=== PATIENT | female | born 1940 | race Caucasian/White ===

== ENCOUNTER 2022-09-11 19:46 | Inpatient (IN) | payer BC, MEDICARE ==
[~2022-09-11] VITALS: Ht 157.5 cm; Wt 65.9 kg
[2022-09-11] MEDS ORDERED: iohexol 350MG/ML 100ml bottle IV ONE (19:59)
[2022-09-11 20:49] LABS: BASOPHILS # (AUTO) 0.1 X10'3 (0-0.2); BASOPHILS % (AUTO) 0.6 % (0-1); EOSINOPHILS % (AUTO) 0.4 % (0-6); HEMATOCRIT 32.6 % (35.0-45.0); HEMOGLOBIN 11.3 g/dl (12.0-16.0); LYMPHOCYTES # (AUTO) 1.1 X10'3 (1.1-4.8); MEAN CORPUSCULAR HGB CONC 34.6 g/dL (33.0-36.5); MEAN PLATELET VOLUME 7.1 FL (7.4-10.4); MONOCYTES # (AUTO) 0.5 X10'3 (0-0.9); MONOCYTES % (AUTO) 5.1 % (2-12); NEUTROPHILS # (AUTO) 7.7 X10'3 (1.8-7.7); NEUTROPHILS % (AUTO) 81.9 % (42-75); PLATELET COUNT 157 X10'3 (140-440); RED BLOOD COUNT 3.13 X10'6 (4.20-5.60); RED CELL DISTRIBUTION WIDTH 12.8 % (11.5-14.5); WHITE BLOOD COUNT 9.4 X10'3 (4.5-11.0)
[2022-09-11 20:58] LABS: ALANINE AMINOTRANSFERASE 13 U/L (12-78); ALBUMIN 3.5 G/DL (3.4-5.0); ALKALINE PHOSPHATASE 83 IU/L (46-116); ANION GAP 9 (8-16); ASPARTATE AMINO TRANSFERASE 20 U/L (10-37); BILIRUBIN,TOTAL 0.5 MG/DL (0.1-1.0); BLOOD UREA NITROGEN 25 MG/DL (7-18); BUN/CREATININE RATIO 21.2 (10.0-20.0); CALCIUM 9.9 MG/DL (8.5-10.1); CHLORIDE 106 MMOL/L (99-107); CREATININE 1.18 MG/DL (0.40-0.90); GLUCOSE 120 MG/DL (70-104); POTASSIUM 4.4 MMOL/L (3.5-5.1); SODIUM 138 MMOL/L (135-145); TOTAL CARBON DIOXIDE 22.9 MMOL/L (24-32); TOTAL PROTEIN 7.1 G/DL (6.4-8.2); eGFR 44 ML/MIN
--- NOTE | 2022-09-11 21:29 | NUR ---
PT NPO DUE TO FAILED BEDSIDE SWALLOW EVAL. ORDER FOR SPEECH THERAPY EVALUATION PLACED. PT INCONTINENT. CLEAN BRIEF AND PUREWICK APPLIED AND PT EDUCATED
[2022-09-11 22:20] LABS: APTT 23 SECONDS (22-32)
[2022-09-11] MEDS ORDERED: magnesium Cl slow-release 64mg tablet PO PRN (22:30)
[2022-09-11] MEDS ORDERED: potassium Cl 40MEQ/1/2NS 520ml 520 ML IV PRN (22:30)
[2022-09-11] MEDS ORDERED: potassium Cl 20 mEq SR tablet PO PRN ×2 (22:30)
[2022-09-11] MEDS ORDERED: ondansetron/PF 4mg/2ml inj IV PRN (22:30)
[2022-09-11] MEDS ORDERED: magnesium 2GM in 50ml NS 50 ML IV PRN (22:30)
[2022-09-11] MEDS ORDERED: acetaminophen 325mg tablet PO PRN (22:30)
[2022-09-11] MEDS ORDERED: magnesium 4gm in 100ml NS 100 ML IV PRN (22:30)
[2022-09-11 23:44] VITALS: BP 93/50; PULSE 74; RESP 26; TEMP 98.8; O2SAT 97
[2022-09-12] VITALS (7 sets, daily range): BP systolic 93–107; BP diastolic 43–56; PULSE 59–71; RESP 14–18; TEMP 97.5–98.1; O2SAT 96–99
[2022-09-12 06:50] LABS: BASOPHILS % (AUTO) 0.4 % (0-1); EOSINOPHILS % (AUTO) 0.4 % (0-6); HEMATOCRIT 31.2 % (35.0-45.0); HEMOGLOBIN 10.5 g/dl (12.0-16.0); LYMPHOCYTES # (AUTO) 3.2 X10'3 (1.1-4.8); LYMPHOCYTES % (AUTO) 30.2 % (21-51); MEAN CORPUSCULAR HEMOGLOBIN 35.3 PG (27.0-31.0); MEAN CORPUSCULAR HGB CONC 33.6 g/dL (33.0-36.5); MONOCYTES # (AUTO) 0.8 X10'3 (0-0.9); MONOCYTES % (AUTO) 7.3 % (2-12); NEUTROPHILS # (AUTO) 6.6 X10'3 (1.8-7.7); NEUTROPHILS % (AUTO) 61.7 % (42-75); PLATELET COUNT 152 X10'3 (140-440); RED BLOOD COUNT 2.97 X10'6 (4.20-5.60); RED CELL DISTRIBUTION WIDTH 12.6 % (11.5-14.5); WHITE BLOOD COUNT 10.7 X10'3 (4.5-11.0)
[2022-09-12 06:56] LABS: ALBUMIN 3.1 G/DL (3.4-5.0); ANION GAP 7 (8-16); BLOOD UREA NITROGEN 24 MG/DL (7-18); BUN/CREATININE RATIO 19.8 (10.0-20.0); CALCIUM 9.4 MG/DL (8.5-10.1); CHLORIDE 107 MMOL/L (99-107); CREATININE 1.21 MG/DL (0.40-0.90); GLUCOSE 102 MG/DL (70-104); MAGNESIUM 1.9 MG/DL (1.5-2.4); POTASSIUM 4.1 MMOL/L (3.5-5.1); SODIUM 139 MMOL/L (135-145); TOTAL CARBON DIOXIDE 24.7 MMOL/L (24-32); eGFR 43 ML/MIN
[2022-09-12 07:42] LABS: CHOL/HDL RATIO 3.8 (0.00-4.99); CHOLESTEROL 187 MG/DL (0-200); HDL CHOLESTEROL 49 MG/DL (35-60); LDL CHOLESTEROL 125 MG/DL (50-100); TRIGLYCERIDES 51 MG/DL (20-135)
[2022-09-12] MEDS: K and/or MAG REPLACEMENT MC SCH ×2 (08:00→20:00)
[2022-09-12] MEDS ORDERED: atorvastatin 20mg tablet PO SCH (08:45)
--- NOTE | 2022-09-12 11:28 | NUR ---
spoke to doctor Jamal and stroke nurse patient can have small bites of jello and or apple sauce while we wait for speech therapy to see patient. Patient is able to swallow but has suspected cough r/t copd. Aspiration precautions in place.
[2022-09-12] MEDS ORDERED: clopidogrel 300mg tablet PO ONE (11:40)
[2022-09-12 11:44] LABS: HEMOGLOBIN A1C 5.1 % (4.5-6.2)
[2022-09-12] MEDS ORDERED: aspirin 325mg tablet PO ONE (11:45)
--- NOTE | 2022-09-12 13:14 | NUR ---
Malnutrition consult: Pt unsure of wt loss though with decreased appetite/PO intake per malnutrition risk screen with RN. Unable to obtain information from pt at this time as per EMR pt A/O x 1 and confused. Pt currently NPO pending BSS with ST. No scaled wt hx in EMR though current scaled wt is appropriate for age. Pt with no edema per physician notes. Unable to fully assess nutrition status at this time. Will continue to follow and monitor for s/s of malnutrition once more information is able to be obtained. Addendum: 09/12/22 at [address] Amended: Links added.
--- NOTE | 2022-09-12 14:00 | NUR ---
Physical therapy found patient in bed supine position with brief on. Wick was inside brief but had came disconnected from the suction tube the suction part attached to inner thigh and left a one inch circular open area to upper right thigh. Patient denies any pain. Wound care consult put in. cleansed with NS and pat dry with gauze.covered with a soft form 2x2 for skin integrity. Patient is incontinent. Wick in place. Staff educated on no briefs. Patient will remain on puree until new orders. HOB at 45 degrees at all times. All safety measures in place and call light in reach.
[2022-09-12] MEDS ORDERED: ipratropium/albuterol 3ml nebule NEB PRN (14:15)
[2022-09-12] MEDS: normal saline 500ml IV soln 500 ML IV SCH ×2 (14:25→21:33)
[2022-09-12] MEDS ORDERED: POTA-206 PO (15:22)
[2022-09-12] MEDS ORDERED: LEVO100T9 PO (15:22)
[2022-09-12] MEDS ORDERED: normal saline 1000ml 1,000 ML IV ONE (15:50)
--- NOTE | 2022-09-12 18:04 | NUR ---
patient pulled out IV. 400 of bolus had been given. Patient is very confused and would not comply with relaxing arm. Patient currently in bed. MD wants IV fluids after bolus will report to night nurse.
--- NOTE | 2022-09-12 18:30 | NUR ---
Patient in room PCU 3025. I have received report from Tamiko WIGGINS and had the opportunity to ask questions and assume patient care.
[2022-09-12] MEDS: nystatin 500,000 unit/5ML UD oral suspension PO SCH (21:16)
--- NOTE | 2022-09-12 22:54 | NUR ---
Page Sent PAGER ID: [phone] MESSAGE: [id number] Malka Jasso: pt is refusing to have IV. thank you Brit ext [phone]
[2022-09-13 02:00] VITALS: BP 95/48; PULSE 61; RESP 22; TEMP 97.7; O2SAT 94
--- NOTE | 2022-09-13 03:00 | NUR ---
PATIENT REFUSES TO PARTICIPATE IN CARE AND IS ONLY FOCUSED ON GOING HOME. PT STATES THAT "ONE WAY OR ANOTHER" SHE WILL GO HOME ON THURSDAY. PT REFUSES IV. MULTIPLE NURSES TRIED TO EXPLAIN THE IMPORTANCE OF HAVING AN IV AND ALSO STAYING UNTIL DISCHARGED. PT GETS VERY AGITATED EVERY TIME NURSES TRY TO CHECK ON HER OR SPEAK TO HER.
[2022-09-13] MEDS: normal saline 500ml IV soln 500 ML IV SCH ×2 (04:13→10:53)
--- NOTE | 2022-09-13 04:25 | NUR ---
Page Sent PAGER ID: [phone] MESSAGE: [phone]: TORI WALKER: PT WENT INTO AFIB W/ HR 140-150'S. PT STILL REFUSES IV. THANK YOU. BRIT EXT [phone]
--- NOTE | 2022-09-13 05:30 | NUR ---
called noc shift hospitalist and advised pt is in Afib HR 110s-120s, BP 80/60 (MAP 67), but pt is refusing IV and other care.
--- NOTE | 2022-09-13 06:22 | NUR ---
Problems reprioritized. Patient report given, questions answered & plan of care reviewed with Asia JUARES.
[2022-09-13 06:30] VITALS: BP 80/46; PULSE 123; RESP 25; TEMP 97.9; O2SAT 94
[2022-09-13 06:30] LABS: BASOPHILS % (AUTO) 0.6 % (0-1); EOSINOPHILS # (AUTO) 0.1 X10'3 (0-0.9); EOSINOPHILS % (AUTO) 2.2 % (0-6); HEMATOCRIT 32.5 % (35.0-45.0); HEMOGLOBIN 10.8 g/dl (12.0-16.0); LYMPHOCYTES # (AUTO) 2.1 X10'3 (1.1-4.8); LYMPHOCYTES % (AUTO) 31.8 % (21-51); MEAN CORPUSCULAR HEMOGLOBIN 34.8 PG (27.0-31.0); MEAN CORPUSCULAR HGB CONC 33.1 g/dL (33.0-36.5); MEAN CORPUSCULAR VOLUME 105.2 FL (78-98); MEAN PLATELET VOLUME 7.5 FL (7.4-10.4); MONOCYTES # (AUTO) 0.5 X10'3 (0-0.9); MONOCYTES % (AUTO) 7.9 % (2-12); NEUTROPHILS # (AUTO) 3.9 X10'3 (1.8-7.7); NEUTROPHILS % (AUTO) 57.5 % (42-75); PLATELET COUNT 149 X10'3 (140-440); RED BLOOD COUNT 3.09 X10'6 (4.20-5.60); RED CELL DISTRIBUTION WIDTH 12.7 % (11.5-14.5); WHITE BLOOD COUNT 6.7 X10'3 (4.5-11.0)
[2022-09-13 06:46] LABS: ALBUMIN 3.1 G/DL (3.4-5.0); ANION GAP 12 (8-16); BLOOD UREA NITROGEN 23 MG/DL (7-18); BUN/CREATININE RATIO 21.5 (10.0-20.0); CALCIUM 9.7 MG/DL (8.5-10.1); CHLORIDE 107 MMOL/L (99-107); CREATININE 1.07 MG/DL (0.40-0.90); GLUCOSE 85 MG/DL (70-104); POTASSIUM 3.8 MMOL/L (3.5-5.1); SODIUM 141 MMOL/L (135-145); TOTAL CARBON DIOXIDE 21.9 MMOL/L (24-32); eGFR 49 ML/MIN
--- NOTE | 2022-09-13 07:11 | NUR ---
This RN has reviewed and agrees w/the CHUCKER's physical assessment of this patient.
[2022-09-13] MEDS ORDERED: atorvastatin 20mg tablet PO SCH (08:00)
[2022-09-13] MEDS ORDERED: clopidogrel 75mg tablet PO SCH (08:00)
[2022-09-13] MEDS: K and/or MAG REPLACEMENT MC SCH (08:00)
[2022-09-13] MEDS: nystatin 500,000 unit/5ML UD oral suspension PO SCH ×2 (08:02→13:37)
[2022-09-13] MEDS: aspirin 81mg tab.chew PO SCH ×2 (08:03→08:30)
[2022-09-13 09:58] VITALS: PULSE 64; RESP 16; O2SAT 93
[2022-09-13 11:10] VITALS: BP 118/54; PULSE 57; RESP 21; TEMP 97.8; O2SAT 92
--- NOTE | 2022-09-13 12:04 | NUR ---
F/u for malnutrition consult: Attempted visit with pt however pt not at bedside. Diet has been advanced to pureed with thin liquids per ST recs and pt eating well, documented with 75% PO intake of first two meals which is adequate to meet estimated nutrient needs. Pt with no documented significant decrease in muscle strength or edema. Current wt appropriate for age. Pt currently lacks a minimum of two criteria for malnutrition. Will continue to follow and monitor s/s of malnutrition. Addendum: 09/13/22 at [address] Amended: Links added.
[2022-09-13 15:20] VITALS: BP 115/43; PULSE 60; RESP 20; TEMP 97.5; O2SAT 96
[2022-09-13] MEDS ORDERED: APIX5TAB3 PO (16:16)
[2022-09-13] MEDS ORDERED: BUDE10.22 INH (16:16)
[2022-09-13] MEDS ORDERED: ALBU6.7H14 INH (16:16)
[2022-09-13] MEDS ORDERED: ROSU40TA PO (16:16)
[2022-09-13] MEDS ORDERED: METO-395 PO (16:16)
--- NOTE | 2022-09-13 17:23 | NUR ---
Report given to patient, patients and patients daughter. Educated thoroughly and went over multiple times. Educated on new medication, stroke measures, follow up and stroke prevention. No IV, tele dc'd. All belongings taken from room. Family helped patient into car without trouble. Lou discount coupon given.
== END 2022-09-13 17:00 | disposition home health service (06) | DRG 65 ==
LOC: ER 19:46 → ED HOLD 22:31 → PCU 3S 23:38
PROVIDERS: ADMIT Internal Medicine; ATTEND Family Medicine
PROC: B3251ZZ Computerized Tomography (CT Scan) of Bilateral Common Carotid Arteries using Low Osmolar Contrast (ICD-10-PCS; principal; 2022-09-11)
PROC: B32G1ZZ Computerized Tomography (CT Scan) of Bilateral Vertebral Arteries using Low Osmolar Contrast (ICD-10-PCS; 2022-09-11)
PROC: B32R1ZZ Computerized Tomography (CT Scan) of Intracranial Arteries using Low Osmolar Contrast (ICD-10-PCS; 2022-09-11)
PROC: B3281ZZ Computerized Tomography (CT Scan) of Bilateral Internal Carotid Arteries using Low Osmolar Contrast (ICD-10-PCS; 2022-09-11)
DX: I63.89 Other cerebral infarction (principal); N17.9 Acute kidney failure, unspecified; R29.701 NIHSS score 1; J44.9 Chronic obstructive pulmonary disease, unspecified; I48.91 Unspecified atrial fibrillation; R29.6 Repeated falls; F17.200 Nicotine dependence, unspecified, uncomplicated; Z71.6 Tobacco abuse counseling; Z79.899 Other long term (current) drug therapy
CPT/HCPCS: 36415; 70450; 70496; 70498; 70551; 71045; 73502; 80048; 80053; 80061; 82948; 83036; 83735; 84484; 85025; 85610; 85730; 87081; 92508; 92616; 93005; 93306; 94760; 97116; 97162; 97530; 99285; A6258; G0378; J3490; J7030; Q9967